=== PATIENT | male | born 1985 | race Caucasian/White ===

== ENCOUNTER → 2016-05-19 | Outpatient (CLI) | payer OTHER ==
--- NOTE | 2016-05-19 10:10 | KCIC ---
Examination: MRI of the right knee without contrast HISTORY History of lateral right knee pain for 2 years progressed over time. COMPARISON None available. TECHNIQUE Multiplanar, multisequence MR imaging of the right knee was performed without contrast. FINDINGS The anterior and posterior cruciate ligament are intact. The medial meniscus appears intact. There is mild increased signal identified at junction of the anterior horn and the body of the lateral meniscus best visualized on series 7 image #22 and series 9 image #13, question a small undersurface tear or a subtle radial tear. The medial collateral ligament is intact. The lateral collateral ligamentous complex including the fibular collateral ligament, biceps femoris tendon grossly appears intact. The medial, lateral retinaculum appears intact. The extensor mechanism is intact. Small knee joint effusion is identified. Small cysts identified in the tibial tuberosity. There is mild increased T2 signal identified in the infrapatellar region in the Hoffa's fat pad could be T2 shading artifact or minimal Hoffa's fat pad edema. The cartilage in the medial, lateral, patellofemoral compartment grossly appears unremarkable. IMPRESSION - Questionable subtle increased signal identified junction of the anterior horn and body of the lateral meniscus, question subtle tear. - Small knee joint effusion. - Minimal increased T2 signal identified in the Hoffa's fat pad in the infrapatellar region could be artifactual secondary to T2 shading or due to Hoffa's fat pad disease. Electronically signed by: Héctor Ferguson (May 19, 2016 10:08:24)
== END | disposition home or self-care (01) ==
LOC: KCIC MRI 08:32
PROVIDERS: ATTEND Physician Assistant
DX: M25.561 Pain in right knee (principal); G89.29 Other chronic pain; M25.461 Effusion, right knee
CPT/HCPCS: 73721